=== PATIENT | male | born 1995 | race Caucasian/White ===

== ENCOUNTER 2016-09-27 14:34 | Emergency (ER) | payer SELFPAY ==
[~2016-09-27] VITALS: Ht 172.7 cm; Wt 73.0 kg
[2016-09-27] MEDS ORDERED: SODIUM CHLORIDE 0.9% 1,000 ML IV ONE ×2 (14:52→17:17)
[2016-09-27 15:19] LABS: BASOPHILS % 0.6 % (0.0-2.0); HEMATOCRIT. 46.5 % (42.0-52.0); HEMOGLOBIN. 16.1 g/dL (14.0-18.0); LYMPHOCYTES % 16.7 % (20.0-50.0); MEAN CORPUSCULAR HEMOGLOBIN 30.3 pg (28.0-32.0); MEAN CORPUSCULAR HGB CONC 34.7 g/dL (31.0-37.0); MEAN CORPUSCULAR VOLUME 87.1 fL (80.0-94.0); MEAN PLATELET VOLUME 8.1 fl (7.4-10.4); MONOCYTES % 6.2 % (2.0-8.0); NEUTROPHILS % 75.5 % (40.0-76.0); PLATELET 233 x1000/uL (130-400); RED BLOOD CELL COUNT 5.34 mill/uL (4.7-6.1); RED CELL DISTRIBUTION WIDTH 12.4 % (11.6-14.6); WHITE BLOOD COUNT 7.1 x1000/uL (4.5-11.0)
[2016-09-27 15:27] LABS: CALCIUM 8.8 mg/dL (8.5-10.1); CHLORIDE 103 mEq/L (98-107); INDEX HEMOLYSI 1 (1-3); INDEX ICTERIC 1 (1-4); INDEX LIPEMIC 1 (1-3)
[2016-09-27 15:32] LABS: AMMONIA 38 uMol/L (<32); INDEX HEMOLYSI 1 (1-3)
[2016-09-27 15:33] LABS: ACETAMINOPHEN < 2 ug/mL (10-30); ALANINE AMINOTRANSFERASE 30 IU/L (13-61); ALBUMIN 4.1 g/dL (3.4-5.0); ANION GAP 13; CARBON DIOXIDE 30 mEq/L (21-32); ETHANOL BLOOD < 10 mg/dL; UREA NITROGEN BLOOD 21 mg/dL (7-21); eGFR > 60 mL/min (>60)
[2016-09-27 16:22] LABS: CLARITY URINE CLEAR (CLEAR); COLOR URINE YELLOW (YELLOW); GLUCOSE URINE NEGATIVE (NEGATIVE); KETONES URINE NEGATIVE (NEGATIVE); LEUKOCYTE ESTERASE URINE NEGATIVE (NEGATIVE); NITRITE URINE NEGATIVE (NEGATIVE); OCCULT BLOOD URINE NEGATIVE (NEGATIVE); PH URINE 6.5 (4.5-8.0); PROTEIN URINE NEGATIVE (NEGATIVE); SPECIFIC GRAVITY URINE 1.028 (1.005-1.030); UROBILINOGEN URINE 0.2 E.U./dL (0.2-1.0)
[2016-09-27 17:05] LABS: BG CARBOXYHEMOGLOBIN 0.4 % (0.5-1.5); BG DEOXYHEMOGLOBIN 2.3 % (0.0-5.0); BG FRACTION INSPIRED OXYGEN 21; BG HCO3 ACT 24.4 mmol/L (22.0-26.0); BG METHEMOGLOBIN 0.4 % (0.0-1.5); BG OXYGEN SATURATION 97.7 % (92.0-98.5); BG OXYHEMOGLOBIN 96.9 % (94.0-97.0); BG PCO2 42.7 mmHg (35.0-45.0); BG PH 7.374 (7.350-7.450); BG PO2 102.6 mmHg (75.0-100.0); BG SAMPLE SITE LEFT BRACHIAL; BG TOTAL HEMOGLOBIN 15.8 g/dL (12.0-18.0); BG VENT MODE ROOM AIR
[2016-09-27] MEDS ORDERED: DEXTROSE 50% WATER 50ML SYRINGE IV ONE (18:00)
[2016-09-27 23:33] LABS: *AMPHETAMINES SCREEN URINE NEGATIVE (NEGATIVE); *BARBITURATES SCREEN URINE NEGATIVE (NEGATIVE); *BENZODIAZEPINES SCREEN URINE PRESUMTIVE POSITIVE (NEGATIVE); *COCAINE SCREEN URINE NEGATIVE (NEGATIVE); CANNABINOID URINE SCREEN NEGATIVE (NEGATIVE); ECSTASY MDMA SCREEN URINE NEGATIVE (NEGATIVE); METHADONE URINE SCREEN NEGATIVE (NEGATIVE); OPIATES URINE SCREEN NEGATIVE (NEGATIVE); PHENCYCLIDINE URINE SCREEN NEGATIVE (NEGATIVE)
[2016-09-28 17:49] VITALS: BP 112/70
== END 2016-09-28 20:10 | disposition home or self-care (01) ==
LOC: ER 15:00
DX: T42.4X1A Poisoning by benzodiazepines, accidental (unintentional), initial encounter (principal); R41.82 Altered mental status, unspecified; Y92.520 Airport as the place of occurrence of the external cause
CPT/HCPCS: 36415; 36600; 70450; 71010; 80053; 80305; 80329; 81003; 82140; 82375; 82805; 82962; 85025; 93005; 96360; 96361; 99285; G0482; J7030; 80307